=== PATIENT | female | born 1945 | race Caucasian/White ===

== ENCOUNTER 2023-12-16 09:21 | Outpatient (CLI) | payer MEDICARE, SELFPAY ==
--- NOTE | ~2023-12-16 | MR_ITS ---
MRI of the brain Clinical History: Headache Technique: Axial and sagittal T1-weighted images were acquired. These were followed by axial T2-weigh ludwig, diffusion weighted, gradient, and FLAIR images. Findings: No abnormal signal seen in the brain parenchyma. No acute infarct, internal hemorrhage, or mass lesion. Ventricles and subarachnoid spaces are unremarkable. Orbits are unremarkable. There is mild ethmoid s inus disease. Remaining paranasal sinuses and mastoid air cells are clear. Major intracranial flow vo ids appear intact. Sagittal midline structures are intact. IMPRESSION: No intracranial abnormality. Mild ethmoid sinus disease. Reviewed, dictated and finalized at location .
== END 2023-12-16 09:22 | disposition home or self-care (01) ==
LOC: ANHIMG 09:34
PROVIDERS: PCP Family Medicine; Visit Provider Family Medicine
DX: R51.9 Headache, unspecified (principal)
CPT/HCPCS: 70551